=== PATIENT | female | born 2000 | race American Indian/Alaskan Native ===

== ENCOUNTER 2019-07-21 08:35 | Inpatient (IN) | payer OTHER ==
[2019-07-21] MEDS ORDERED: LACTATED RINGERS 2,000 ML ONE (08:57)
[2019-07-21] MEDS: LACTATED RINGERS 1,000 ML IV SCH (09:00)
[2019-07-21] MEDS: MAGNESIUM SULFATE 40GM/1000ML 40 GM/1,000 ML BAG IV SCH (09:50)
[2019-07-21 10:00] LABS: Hematocrit 29.4 % (30.3-42.9); Hemoglobin 9.8 gm/dl (10.1-14.3); Mean Corpuscular HGB Conc 33 % (30-34); Mean Corpuscular Volume 82 fl (79-97); Platelet Count 200 K/mm3 (140-440); Red Blood Count 3.61 M/mm3 (3.65-5.03); Red Cell Distribution Width 16.5 % (13.2-15.2)
[2019-07-21] MEDS ORDERED: MAGNESIUM SULFATE 4 GM/100 ML BAG IV ONE (10:00)
[2019-07-21] MEDS ORDERED: hydrALAZINE 20 MG/1 ML INJ IV ONE (10:00)
[2019-07-21 10:08] LABS: Bilirubin,Urine NEG (Negative); Blood,Urine SM (Negative); Color,Urine Yellow (Yellow); Hyaline Casts,Urine 1 /LPF; Mucus,Urine FEW /HPF; Urobilinogen,Urine < 2.0 mg/dL (<2.0)
[2019-07-21 10:10] LABS: Amphetamine Screen,Urine PRESUMPTIVE NEGATIVE; Benzodiazepines Screen,Urine PRESUMPTIVE NEGATIVE; Cannabinoid Screen,Urine PRESUMPTIVE NEGATIVE; Cocaine Screen,Urine PRESUMPTIVE NEGATIVE; Methadone Screen,Urine PRESUMPTIVE NEGATIVE; Opiate Screen,Urine PRESUMPTIVE NEGATIVE
[2019-07-21 10:21] LABS: Alanine Aminotransferase 14 units/L (7-56); Uric Acid 6.1 mg/dL (3.5-7.6)
[2019-07-21] MEDS ORDERED: MINERAL OIL 30 ML ORAL LIQD PO PRN (11:00)
[2019-07-21] MEDS ORDERED: ePHEDrine SULFATE 50 MG/1 ML INJ IV PRN (11:00)
[2019-07-21] MEDS ORDERED: LIDOCAINE (2%) 20 MG/1 ML VIAL 20 ML MDV INFILTRATI ONE (11:00)
[2019-07-21] MEDS ORDERED: BUTORPHANOL 2 MG/1 ML INJ IV PRN (11:00)
[2019-07-21] MEDS ORDERED: LACTATED RINGERS 1,000 ML IV SCH (11:00)
[2019-07-21] MEDS ORDERED: TERBUTALINE 1 MG/1 ML INJ IVP PRN (11:00)
[2019-07-21] MEDS ORDERED: DINOPROSTONE 10 MG VAG SUPP VG ONE (11:00)
[2019-07-21] MEDS ORDERED: fentaNYL 100 MCG/2 ML INJ IV PRN (11:00)
[2019-07-21] MEDS ORDERED: OXYTOCIN DRIP 30 UNITS/500 ML BAG IV SCH ×2 (11:00)
[2019-07-21] MEDS ORDERED: OXYTOCIN 20 UNIT/1000ML DRIP 20 UNITS/1,000 ML BAG IV SCH (11:00)
[2019-07-21] MEDS ORDERED: TERBUTALINE 1 MG/1 ML INJ SUB-Q PRN (11:00)
[2019-07-21] MEDS ORDERED: ONDANSETRON 4 MG/2 ML INJ IV PRN ×2 (11:00→20:14)
--- NOTE | 2019-07-21 13:28 | History and Physical Report ---
History of Present Illness Date of examination: 07/21/19 Chief complaint: Seizure at home History of present illness: Pt is a 18yo BF EDC 07/26/19; EGA 39 2/7 weeks presents to L&D after having a seizure at home. She has no history of seizures and received sporadic care at [facility] since 31 weeks - last visit 06/04/19. records are available and GBS is unknown. Past History Past Medical History: no pertinent history Past Surgical History: no surgical history Family/Genetic History: none Social history: no significant social history, single - Obstetrical History Expected Date of Delivery: 07/26/19 Actual Gestation: 39 Week(s) 2 Day(s) : 1 Medications and Allergies Allergies Allergy/AdvReac Type Severity Reaction Status Date / Time No Known Allergies Allergy Verified 10/09/17 09:35 Home Medications Medication Instructions Recorded Confirmed Last Taken Type HYDROcodone/APAP 5-325 [[place] 1 each PO Q12H PRN #10 tablet 11/19/17 Unknown Rx 5-325 mg TAB] Active Meds: Active Medications Butorphanol Tartrate (Stadol) 1 mg IV Q2H PRN PRN Reason: Labor Pain Ephedrine Sulfate (Ephedrine Sulfate) 10 mg IV Q2M PRN PRN Reason: Hypotension Fentanyl (Sublimaze) 100 mcg IV Q2H PRN PRN Reason: Labor Pain Lactated Ringer's (Lactated Ringers) 1,000 mls @ 125 mls/hr IV DIRECT RENE Last Admin: 07/21/19 09:00 Dose: 75 mls/hr Documented by: Magnesium Sulfate (Magnesium Sulfate 40gm/1000ml) 40 gm in 1,000 mls @ 50 mls/hr IV DIRECT RENE Last Admin: 07/21/19 09:50 Dose: 2 gm/hr, 50 mls/hr Documented by: Oxytocin/Sodium Chloride (Pitocin/Ns 20 Unit/1000ml Drip) 20 units in 1,000 mls @ 125 mls/hr IV DIRECT RENE Oxytocin/Sodium Chloride (Pitocin/Ns 30 Unit/500ml) 30 units in 500 mls @ 1 mls/hr IV TITR RENE; Protocol Oxytocin/Sodium Chloride (Pitocin/Ns 30 Unit/500ml) 30 units in 500 mls @ 4 mls/hr IV TITR RENE; Protocol Lactated Ringer's (Lactated Ringers) 1,000 mls @ 125 mls/hr IV DIRECT RENE Mineral Oil (Mineral Oil) 30 ml PO QHS PRN PRN Reason: Constipation Ondansetron HCl (Zofran) 4 mg IV Q8H PRN PRN Reason: Nausea And Vomiting Terbutaline Sulfate (Brethine) 0.25 mg SUB-Q ONCE PRN PRN Reason: Hyperstimulation/Hypertonicity Terbutaline Sulfate (Brethine) 0.25 mg IVP ONCE PRN PRN Reason: Hyperstimulation/Hypertonicity Review of Systems All systems: negative - Vital Signs Vital signs: Vital Signs Pulse BP 97 H 138/96 07/21/19 08:40 07/21/19 08:40 Temp Pulse Resp BP Pulse Ox 88 167/92 99 07/21/19 13:22 07/21/19 13:17 07/21/19 13:22 - Physical Exam Breasts: Positive: deferred Cardiovascular: Regular rate Lungs: Positive: Clear to auscultation Abdomen: Positive: normal appearance Genitourinary (Female): Positive: normal external genitalia Vagina: Positive: normal moisture Uterus: Positive: enlarged Extremities: Positive: normal - Obstetrical FHR: category 1 Uterine Contraction Monitor Mode: External Results Result Diagrams: 07/21/19 09:20 07/21/19 09:20 Abnormal lab results 07/21/19 07/21/19 Range/Units 09:20 09:20 RBC 3.61 L (3.65-5.03) M/mm3 Hgb 9.8 L (10.1-14.3) gm/dl Hct 29.4 L (30.3-42.9) % MCH 27 L (28-32) pg RDW 16.5 H (13.2-15.2) % Lactate Dehydrogenase 345 H (91-180) units/L All other labs normal. Assessment and Plan - Patient Problems (1) 39 weeks gestation of Onset Date: 07/21/19 Current Visit: Yes Status: Acute Plan to address problem: A: IUP @ 39 2/7 weeks S/P Eclamptic seizure Insufficient care P: Admit to L&D for management of Eclampsia Begin IV Magnesium sulfate, IV Hydralazine Will begin Cervidil for induction of labor (2) Eclamptic seizure Onset Date: 07/21/19 Current Visit: Yes Status: Acute (3) Insufficient care in third trimester Onset Date: 07/21/19 Current Visit: No Status: Resolved
[2019-07-21] MEDS: hydrALAZINE 20 MG/1 ML INJ IV PRN ×2 (19:33→20:26)
[2019-07-21] MEDS: OXYTOCIN 20 UNIT/1000ML DRIP 20 UNITS/1,000 ML BAG IV SCH ×2 (20:06→21:11)
--- NOTE | 2019-07-21 20:12 | Procedure Note ---
OB Delivery Note - Delivery Date of Delivery: 07/21/19 Surgeon: BENJAMIN BUSH Estimated blood loss: 100cc - Vaginal Delivery presentation: vertex Delivery position: OA Intrapartum events: eclampsia Delivery induction: cervidil Delivery augmentation: rupture of membranes Delivery monitor: external FHT, external uterine Route of delivery: Delivery placenta: spontaneous Delivery cord: 3 umbilical vessels Episiotomy: none Delivery laceration: none Anesthesia: intravenous Delivery comments: delivered OA and placed on Mom's chest for [id number] bonding and delayed cord clamping - Infant A at 1 minute: 8 at 5 minutes: 9 Gender: Male (2827gms)
[2019-07-21] MEDS ORDERED: LANOLIN/ZINC/DIMETHICONE (LANSINOH) 7 GM TP PRN (20:14)
[2019-07-21] MEDS ORDERED: ACETAMINOPHEN 325 MG TAB PO PRN (20:14)
[2019-07-21] MEDS ORDERED: WITCH HAZEL/ GLYCERIN PAD TP PRN (20:14)
[2019-07-21] MEDS ORDERED: PROMETHAZINE 25 MG TAB PO PRN (20:14)
[2019-07-21] MEDS ORDERED: MAGNESIUM HYDROXIDE (MOM) ORAL LIQD UDC PO PRN (20:14)
[2019-07-21] MEDS ORDERED: diphenhydrAMINE 25 MG CAP PO PRN (20:14)
[2019-07-21] MEDS ORDERED: HYDROcodone/ACETAMINOPHEN 5-325 MG TAB PO PRN (20:14)
[2019-07-21] MEDS ORDERED: PROMETHAZINE 25 MG RECT SUPP PR PRN (20:14)
[2019-07-22] MEDS: DOCUSATE SODIUM 100 MG CAP PO SCH ×3 (01:26→23:06)
[2019-07-22] MEDS: FERROUS SULFATE 325 MG TAB PO SCH ×3 (01:26→23:06)
[2019-07-22] MEDS: hydrALAZINE 20 MG/1 ML INJ IV PRN ×2 (02:21→04:40)
[2019-07-22] MEDS: MAGNESIUM SULFATE 40GM/1000ML 40 GM/1,000 ML BAG IV SCH (04:31)
[2019-07-22] MEDS: LACTATED RINGERS 1,000 ML IV SCH (04:31)
[2019-07-22] MEDS: IBUPROFEN 600 MG TAB PO SCH ×4 (04:39→23:07)
--- NOTE | 2019-07-22 08:32 | Progress Note ---
Assessment and Plan - Patient Problems (1) 39 weeks gestation of Onset Date: 07/21/19 Current Visit: Yes Status: Resolved (2) Eclamptic seizure Onset Date: 07/21/19 Current Visit: Yes Status: Resolved (3) Insufficient care in third trimester Onset Date: 07/21/19 Current Visit: No Status: Resolved (4) (normal spontaneous vaginal delivery) Onset Date: 07/22/19 Current Visit: No Status: Resolved Plan to address problem: A: S/P - PPD #1 Doing well S/P Eclamptic seizure - stable on IV Magnesium sulfate P: Continue IV Magnesium sulfate x 24hrs Anticipate discharge tomorrow. Subjective - Subjective Date of service: 07/22/19 Principal diagnosis: s/p - PPD #1 Interval history: Pt is feeling well without complaints. Bleeding improved. She denies headaches, blurred vision or further seizure activity. Patient reports: appetite normal, voiding normally, pain well controlled, flatus, no dizzy ambulation, no nauseated [place]: doing well, in NICU Objective - Vital Signs Latest vital signs: Vital Signs Temp Pulse Resp BP Pulse Ox 07/22/19 08:28 98 H 96 07/22/19 08:23 94 H 96 07/22/19 08:18 97 H 96 07/22/19 08:13 93 H 96 07/22/19 08:08 94 H 133/85 97 07/22/19 08:03 99 H 96 07/22/19 07:58 117 H 96 07/22/19 07:57 113 H 94 07/22/19 07:53 98 H 96 07/22/19 07:48 100 H 96 07/22/19 07:43 96 H 96 07/22/19 07:38 118 H 132/79 97 07/22/19 07:33 100 H 97 07/22/19 07:28 100 H 97 07/22/19 07:23 98 H 97 07/22/19 07:18 98 H 97 07/22/19 07:15 98.4 F 12 07/22/19 07:13 97 H 97 07/22/19 07:08 123 H 140/90 98 07/22/19 07:03 113 H 96 07/22/19 06:58 101 H 96 07/22/19 06:53 107 H 96 07/22/19 06:48 100 H 97 07/22/19 06:43 105 H 96 07/22/19 06:38 103 H 144/85 96 07/22/19 06:33 105 H 96 07/22/19 06:28 104 H 96 07/22/19 06:23 99 H 96 07/22/19 06:18 112 H 96 07/22/19 06:17 111 H 94 07/22/19 06:13 112 H 95 07/22/19 06:11 118 H 94 07/22/19 06:08 111 H 142/94 94 07/22/19 06:06 115 H 93 07/22/19 06:03 106 H 96 07/22/19 05:58 125 H 96 07/22/19 05:53 109 H 95 07/22/19 05:48 108 H 96 07/22/19 05:43 109 H 94 07/22/19 05:38 115 H 139/83 94 07/22/19 05:37 115 H 94 07/22/19 05:33 117 H 94 07/22/19 05:28 117 H 94 07/22/19 05:23 118 H 94 07/22/19 05:18 119 H 94 07/22/19 05:13 117 H 94 07/22/19 05:08 114 H 145/88 94 07/22/19 05:04 112 H 94 07/22/19 05:03 112 H 94 07/22/19 04:58 111 H 95 07/22/19 04:57 109 H 94 07/22/19 04:53 110 H 95 07/22/19 04:48 105 H 95 07/22/19 04:43 106 H 96 07/22/19 04:40 108 H 94 07/22/19 04:38 111 H 172/104 96 07/22/19 04:35 108 H 94 07/22/19 04:33 124 H 95 07/22/19 04:29 105 H 94 07/22/19 04:28 109 H 95 07/22/19 04:23 109 H 95 07/22/19 04:18 105 H 95 07/22/19 04:13 103 H 96 07/22/19 04:08 107 H 156/99 94 07/22/19 04:03 106 H 95 07/22/19 04:00 98.8 F 07/22/19 03:58 109 H 95 07/22/19 03:53 106 H 96 07/22/19 03:48 107 H 96 07/22/19 03:43 108 H 97 07/22/19 03:38 109 H 164/101 95 07/22/19 03:33 105 H 95 07/22/19 03:30 111 H 94 07/22/19 03:28 109 H 95 07/22/19 03:23 106 H 96 07/22/19 03:18 109 H 96 07/22/19 03:13 110 H 95 07/22/19 03:08 116 H 169/97 96 07/22/19 03:03 116 H 95 07/22/19 03:01 136 H 94 07/22/19 02:58 109 H 93 07/22/19 02:53 107 H 94 07/22/19 02:48 109 H 93 07/22/19 02:47 109 H 94 07/22/19 02:43 112 H 94 07/22/19 02:38 113 H 147/86 93 07/22/19 02:33 109 H 94 07/22/19 02:28 104 H 95 07/22/19 02:23 99 H 94 07/22/19 02:22 113 H 93 07/22/19 02:21 101 H 174/94 07/22/19 02:18 114 H 94 07/22/19 02:14 97 H 94 07/22/19 02:13 108 H 92 07/22/19 02:08 121 H 171/94 93 07/22/19 02:03 101 H 93 07/22/19 01:58 99 H 93 07/22/19 01:54 95 H 94 07/22/19 01:53 96 H 95 07/22/19 01:48 99 H 94 07/22/19 01:46 99 H 94 07/22/19 01:43 100 H 93 07/22/19 01:39 108 H 93 07/22/19 01:38 102 H 164/94 95 07/22/19 01:34 111 H 94 07/22/19 01:33 112 H 95 07/22/19 01:28 111 H 96 07/22/19 01:23 122 H 95 07/22/19 01:18 108 H 97 07/22/19 01:16 103 H 167/94 07/22/19 01:13 104 H 95 07/22/19 01:08 123 H 181/106 96 07/22/19 01:03 107 H 96 07/22/19 00:58 107 H 93 07/22/19 00:53 108 H 94 07/22/19 00:48 105 H 94 07/22/19 00:47 106 H 94 07/22/19 00:43 106 H 94 07/22/19 00:41 107 H 94 07/22/19 00:38 107 H 146/90 95 07/22/19 00:35 111 H 94 07/22/19 00:33 104 H 95 07/22/19 00:28 128 H 95 07/22/19 00:23 109 H 96 07/22/19 00:19 107 H 97 07/22/19 00:13 104 H 96 07/22/19 00:08 109 H 135/89 95 07/22/19 00:07 115 H 94 07/22/19 00:04 111 H 95 07/22/19 00:00 98.1 F 07/21/19 23:58 108 H 95 07/21/19 23:53 110 H 96 07/21/19 23:48 106 H 95 07/21/19 23:43 109 H 96 07/21/19 23:39 109 H 96 07/21/19 23:38 109 H 140/88 07/21/19 23:33 107 H 96 07/21/19 23:28 106 H 97 07/21/19 23:24 109 H 96 07/21/19 23:19 106 H 96 07/21/19 23:14 105 H 96 07/21/19 23:09 110 H 97 07/21/19 23:08 107 H 172/89 07/21/19 23:03 124 H 97 07/21/19 23:01 110 H 186/88 91 07/21/19 22:58 120 H 98 07/21/19 22:23 147 H 98 07/21/19 22:17 128 H 97 07/21/19 22:13 118 H 98 07/21/19 22:08 115 H 142/92 98 07/21/19 22:03 137 H 98 07/21/19 21:58 125 H 96 07/21/19 21:53 131 H 97 02/25/20 21:48 132 H 98 07/21/20 21:43 121 H 97 07/21/20 21:38 114 H 138/81 97 07/21/20 21:33 116 H 97 07/21/20 21:28 120 H 98 02/20 21:23 115 H 97 02/20 21:18 115 H 98 02/20 21:13 118 H 98 07/21/20 21:08 118 H 163/100 97 20 21:03 122 H 96 20 20:58 120 H 98 07/21/20 20:53 127 H 96 20 20:48 125 H 98 20 20:43 122 H 97 20 20:38 114 H 97 20 20:36 115 H 177/104 20 20:33 123 H 97 20 20:28 110 H 98 07/21/20 20:26 112 H 185/108 20 20:23 111 H 97 20 20:22 110 H 185/108 20 20:21 109 H 191/107 20 20:18 115 H 96 07/21/20 20:13 109 H 98 07/21/20 20:08 115 H 97 20 20:03 115 H 98 20 19:58 148 H 96 07/21/20 19:53 129 H 177/92 96 20 19:49 129 H 94 07/21/20 19:48 128 H 97 20 19:45 114 H 168/105 20 19:43 122 H 94 07/21/20 19:37 128 H 98 07/21/20 19:35 127 H 94 02/20 19:34 116 H 177/104 02/20 19:33 122 H 178/107 02/20 19:32 114 H 97 02/20 19:30 99.2 F 20 07/21/20 19:29 118 H 90 07/21/20 19:27 128 H 98 02/20 19:23 111 H 178/107 92 02/20 19:22 120 H 98 07/21/20 19:18 111 H 91 02/20 19:17 117 H 97 02/25/20 19:12 121 H 97 07/21/19 19:10 116 H 90 07/21/19 19:07 120 H 93 07/21/19 19:02 121 H 94 07/21/19 19:00 116 H 92 07/21/19 18:57 132 H 97 07/21/19 18:53 125 H 162/93 07/21/19 18:51 120 H 97 07/21/19 18:47 123 H 97 07/21/19 18:42 137 H 97 07/21/19 18:37 131 H 98 07/21/19 18:32 125 H 95 07/21/19 18:29 129 H 94 07/21/19 18:27 134 H 96 07/21/19 18:22 120 H 145/95 96 07/21/19 18:17 118 H 99 07/21/19 18:13 117 H 94 07/21/19 18:12 128 H 96 07/21/19 18:07 122 H 97 07/21/19 18:02 124 H 97 07/21/19 17:57 120 H 95 07/21/19 17:56 124 H 94 07/21/19 17:53 123 H 160/108 07/21/19 17:51 122 H 97 07/21/19 17:47 133 H 97 07/21/19 17:45 121 H 94 07/21/19 17:42 124 H 97 07/21/19 17:37 110 H 95 07/21/19 17:32 107 H 96 07/21/19 17:27 107 H 95 07/21/19 17:23 110 H 172/109 07/21/19 17:22 111 H 95 07/21/19 17:17 107 H 95 07/21/19 17:13 109 H 94 07/21/19 17:12 107 H 97 07/21/19 17:07 123 H 95 07/21/19 17:02 109 H 97 07/21/19 16:57 133 H 97 07/21/19 16:54 131 H 154/102 07/21/19 16:52 131 H 98 07/21/19 16:47 111 H 96 07/21/19 16:42 113 H 95 07/21/19 16:37 110 H 95 07/21/19 16:32 110 H 96 07/21/19 16:27 115 H 96 07/21/19 16:24 115 H 160/102 07/21/19 16:22 129 H 97 07/21/19 16:17 130 H 98 07/21/19 16:12 112 H 94 07/21/19 16:07 114 H 96 07/21/19 16:02 111 H 96 07/21/19 15:57 116 H 97 07/21/19 15:53 121 H 163/97 07/21/19 15:52 110 H 96 07/21/19 15:49 110 H 154/95 07/21/19 15:47 109 H 96 07/21/19 15:42 121 H 97 07/21/19 15:37 111 H 98 07/21/19 15:32 109 H 97 07/21/19 15:27 115 H 100 07/21/19 15:22 114 H 168/97 97 07/21/19 15:19 114 H 162/102 07/21/19 15:17 119 H 96 07/21/19 15:12 120 H 97 07/21/19 15:07 133 H 94 07/21/19 15:02 117 H 98 07/21/19 14:57 132 H 100 07/21/19 14:53 114 H 156/101 07/21/19 14:52 98.1 F 127 H 98 07/21/19 14:47 110 H 98 07/21/19 14:42 113 H 99 07/21/19 14:37 104 H 97 07/21/19 14:32 102 H 98 07/21/19 14:27 105 H 97 07/21/19 14:22 102 H 142/99 97 07/21/19 14:17 130 H 99 07/21/19 14:12 91 H 98 07/21/19 14:07 85 98 07/21/19 14:02 81 97 07/21/19 13:57 86 97 07/21/19 13:53 82 152/96 07/21/19 13:52 85 99 07/21/19 13:47 84 98 07/21/19 13:42 94 H 98 07/21/19 13:37 100 H 98 07/21/19 13:32 88 98 07/21/19 13:27 102 H 98 07/21/19 13:22 88 99 07/21/19 13:17 86 167/92 97 07/21/19 13:12 86 97 07/21/19 13:07 89 98 07/21/19 13:02 82 170/101 99 07/21/19 12:57 100 H 98 07/21/19 12:52 94 H 97 07/21/19 12:47 101 H 96 07/21/19 12:46 101 H 182/116 07/21/19 12:42 97 H 99 07/21/19 12:37 103 H 96 07/21/19 12:32 88 98 07/21/19 12:31 88 154/92 07/21/19 12:27 104 H 96 07/21/19 12:22 105 H 96 07/21/19 12:17 98 H 98 07/21/19 12:15 85 132/80 07/21/19 12:12 84 96 07/21/19 12:07 85 97 07/21/19 12:02 84 97 07/21/19 12:01 88 142/85 07/21/19 11:57 83 97 07/21/19 11:52 85 97 07/21/19 11:47 79 97 07/21/19 11:45 77 142/86 07/21/19 11:42 81 97 07/21/19 11:37 83 97 07/21/19 11:32 83 97 07/21/19 11:31 80 137/77 07/21/19 11:27 82 98 07/21/19 11:22 83 97 07/21/19 11:17 81 95 07/21/19 11:16 84 154/105 07/21/19 11:12 78 95 07/21/19 11:07 99 H 96 07/21/19 11:02 85 97 07/21/19 11:01 78 169/107 07/21/19 10:57 88 97 07/21/19 10:52 86 97 07/21/19 10:47 94 H 97 07/21/19 10:45 88 157/95 07/21/19 10:42 91 H 98 07/21/19 10:37 100 H 98 07/21/19 10:32 98 H 98 07/21/19 10:30 93 H 151/90 07/21/19 10:27 98 H 99 07/21/19 10:22 88 97 07/21/19 10:17 83 97 07/21/19 10:15 85 152/86 07/21/19 10:12 80 97 07/21/19 10:07 89 98 07/21/19 10:02 81 97 07/21/19 10:01 80 152/83 07/21/19 09:57 82 98 07/21/19 09:52 94 H 95 07/21/19 09:47 95 H 98 07/21/19 09:46 105 H 134/82 07/21/19 09:42 95 H 98 07/21/19 09:37 105 H 98 07/21/19 09:32 100 H 97 07/21/19 09:30 91 H 155/91 07/21/19 09:27 100 H 97 07/21/19 09:22 91 H 97 07/21/19 09:17 92 H 98 07/21/19 09:15 87 153/86 07/21/19 09:12 99 H 97 07/21/19 09:07 122 H 95 07/21/19 09:02 90 07/21/19 08:59 95 H 165/90 07/21/19 08:55 120 H 182/110 07/21/19 08:52 113 H 97 07/21/19 08:50 109 H 183/114 07/21/19 08:47 95 H 97 07/21/19 08:42 102 H 97 07/21/19 08:40 97 H 138/96 Intake and Output 07/21/19 07/22/19 07/22/19 22:59 06:59 14:59 Intake Total 1999 934.167 Output Total 2010 1702 83 [facility] -11 -[phone] -83 Intake: IV 1999 934.167 Lactated Ringers 1,000 ml 1000 @ 125 mls/hr IV DIRECT RENE Rx#:[id number] MAGNESIUM SULFATE 40GM/ 934.167 1000ML 40 gm In 1,000 ml @ 2 GM/HR 50 mls/hr IV DIRECT RENE Rx#:[id number] PITOCin/NS 20 UNIT/1000ML 1000 DRIP 20 units In 1,000 ml @ 250 mls/hr IV DIRECT RENE Rx#:[id number] Output: Urine 2010 1702 83 Indwelling Catheter 2010 1702 83 Other: Total, Output Amount 237 83 83 Estimated Blood Loss 100 - Exam Breasts: Present: deferred Uterus: Present: normal, firm, fundal height below umbilicus Extremities: Present: normal - Labs Labs: Abnormal lab results 07/21/19 07/21/19 07/21/19 Range/Units 09:20 09:20 17:40 RBC 3.61 L (3.65-5.03) M/mm3 Hgb 9.8 L (10.1-14.3) gm/dl Hct 29.4 L (30.3-42.9) % MCH 27 L (28-32) pg RDW 16.5 H (13.2-15.2) % Magnesium 4.80 H (1.7-2.3) mg/dL Lactate Dehydrogenase 345 H (91-180) units/L 07/22/19 Range/Units 00:25 RBC (3.65-5.03) M/mm3 Hgb (10.1-14.3) gm/dl Hct (30.3-42.9) % MCH (28-32) pg RDW (13.2-15.2) % Magnesium 5.60 H (1.7-2.3) mg/dL Lactate Dehydrogenase (91-180) units/L Laboratory Tests 07/21/19 07/21/19 07/21/19 09:20 09:20 09:20 WBC 9.9 RBC 3.61 L Hgb 9.8 L Hct 29.4 L MCV 82 MCH 27 L MCHC 33 RDW 16.5 H Plt Count 200 Creatinine 0.7 Estimated GFR > 60 Uric Acid 6.1 Magnesium AST 34 ALT 14 Lactate Dehydrogenase 345 H Urine Color Yellow Urine Turbidity Clear Urine pH 6.0 Ur Specific [place] 1.016 Urine Protein 100 mg/dl Urine Glucose (UA) Neg Urine Ketones Neg Urine Blood Sm Urine Nitrite Neg Urine Bilirubin Neg Urine Urobilinogen < 2.0 Ur Leukocyte Esterase Neg Urine WBC (Auto) 2.0 Urine RBC (Auto) 2.0 U Epithel Cells (Auto) < 1.0 Hyaline Casts 1 Urine Mucus Few Urine Opiates Screen Urine Methadone Screen Ur Barbiturates Screen Ur Phencyclidine Scrn Ur Amphetamines Screen U Benzodiazepines Scrn Urine Cocaine Screen U Marijuana (THC) Screen Drugs of Abuse Note Syphilis IgG Antibody Hep Bs Antigen HIV 1&2 Antibody Rapid HIV P24 Antigen Rubella IgG Antibody Blood Type Antibody Screen 07/21/19 07/21/19 07/21/19 09:20 09:20 17:40 WBC RBC Hgb Hct MCV MCH MCHC RDW Plt Count Creatinine Estimated GFR Uric Acid Magnesium 4.80 H AST ALT Lactate Dehydrogenase Urine Color Urine Turbidity Urine pH Ur Specific [place] Urine Protein Urine Glucose (UA) Urine Ketones Urine Blood Urine Nitrite Urine Bilirubin Urine Urobilinogen Ur Leukocyte Esterase Urine WBC (Auto) Urine RBC (Auto) U Epithel Cells (Auto) Hyaline Casts Urine Mucus Urine Opiates Screen Presumptive negative Urine Methadone Screen Presumptive negative Ur Barbiturates Screen Presumptive negative Ur Phencyclidine Scrn Presumptive negative Ur Amphetamines Screen Presumptive negative U Benzodiazepines Scrn Presumptive negative Urine Cocaine Screen Presumptive negative U Marijuana (THC) Screen Presumptive negative Drugs of Abuse Note Disclamer Syphilis IgG Antibody Hep Bs Antigen HIV 1&2 Antibody Rapid HIV P24 Antigen Rubella IgG Antibody Blood Type O POSITIVE Antibody Screen Negative 07/21/19 07/21/19 07/21/19 22:30 22:30 22:30 WBC RBC Hgb Hct MCV MCH MCHC RDW Plt Count Creatinine Estimated GFR Uric Acid Magnesium AST ALT Lactate Dehydrogenase Urine Color Urine Turbidity Urine pH Ur Specific [place] Urine Protein Urine Glucose (UA) Urine Ketones Urine Blood Urine Nitrite Urine Bilirubin Urine Urobilinogen Ur Leukocyte Esterase Urine WBC (Auto) Urine RBC (Auto) U Epithel Cells (Auto) Hyaline Casts Urine Mucus Urine Opiates Screen Urine Methadone Screen Ur Barbiturates Screen Ur Phencyclidine Scrn Ur Amphetamines Screen U Benzodiazepines Scrn Urine Cocaine Screen U Marijuana (THC) Screen Drugs of Abuse Note Syphilis IgG Antibody Non-reactive Hep Bs Antigen Non-reactive HIV 1&2 Antibody Rapid Non react HIV P24 Antigen Non react Rubella IgG Antibody Immune Blood Type Antibody Screen 07/22/19 07/22/19 07/22/19 00:25 08:36 08:36 WBC RBC Hgb 9.5 L Hct 28.7 L MCV MCH MCHC RDW Plt Count Creatinine Estimated GFR Uric Acid Magnesium 5.60 H 5.10 H AST ALT Lactate Dehydrogenase Urine Color Urine Turbidity Urine pH Ur Specific [place] Urine Protein Urine Glucose (UA) Urine Ketones Urine Blood Urine Nitrite Urine Bilirubin Urine Urobilinogen Ur Leukocyte Esterase Urine WBC (Auto) Urine RBC (Auto) U Epithel Cells (Auto) Hyaline Casts Urine Mucus Urine Opiates Screen Urine Methadone Screen Ur Barbiturates Screen Ur Phencyclidine Scrn Ur Amphetamines Screen U Benzodiazepines Scrn Urine Cocaine Screen U Marijuana (THC) Screen Drugs of Abuse Note Syphilis IgG Antibody Hep Bs Antigen HIV 1&2 Antibody Rapid HIV P24 Antigen Rubella IgG Antibody Blood Type Antibody Screen
[2019-07-22] MEDS: PRENATAL VIT27-FE FUMARATE-FOLIC ACID VIT TAB PO SCH (09:02)
[2019-07-22 09:38] LABS: Hematocrit 28.7 % (30.3-42.9); Hemoglobin 9.5 gm/dl (10.1-14.3)
[2019-07-22] MEDS ORDERED: MAGNESIUM SULFATE 40GM/1000ML 40 GM/1,000 ML BAG IV SCH (13:53)
--- NOTE | 2019-07-22 16:44 | Cat Scan Report ---
CT HEAD WITHOUT CONTRAST INDICATION : s/p seizure. TECHNIQUE: Axial, coronal and sagittal CT imaging was performed from the skull apex through the skul l base without contrast. All CT scans at this location are performed using CT dose reduction for ALA RA by means of automated exposure control. COMPARISON: None available. FINDINGS: PARENCHYMA: There is a hyperdense round noncalcified solid mass measuring 1.3 x 1.1 cm on image 16 o f series 2. Areas of low-attenuation are seen posteriorly and medially along the right parietal lobe as well as along the right occipital lobe. Similar areas of lower attenuation are noted to a lesser e xtent posteriorly and superiorly along the left parietal lobe. These findings may represent changes a ssociated with chronic microangiopathy or other white matter disease. No hemorrhage or midline shift is seen. VENTRICLES: Symmetric and normal in size. SOFT TISSUES: No significant abnormality of the included soft tissues/orbits. BONES: No acute osseous abnormality. SINUSES: No significant abnormality. ADDITIONAL FINDINGS: None. IMPRESSION: 1. 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 An MRI of the brain with and witho ut contrast would be helpful for further characterization. 2. Nonspecific white matter changes as above. Signer Name: Dex Muniz MD Signed: 07/22/2019 4:39 PM Workstation Name: [id number]
[2019-07-22] MEDS ORDERED: MEASLES, MUMPS & RUBELLA 12,500 UNIT/0.5 ML VACCINE SUB-Q ONE (20:14)
[2019-07-22] MEDS ORDERED: TETANUS,DIPH,PERTUSS(ACELL) VACCINE 0.5 ML SYRINGE IM ONE (20:14)
[2019-07-23] MEDS: IBUPROFEN 600 MG TAB PO SCH ×4 (05:40→22:36)
[2019-07-23] MEDS: FERROUS SULFATE 325 MG TAB PO SCH ×2 (09:07→22:41)
[2019-07-23] MEDS: DOCUSATE SODIUM 100 MG CAP PO SCH ×2 (09:07→22:38)
[2019-07-23] MEDS: PRENATAL VIT27-FE FUMARATE-FOLIC ACID VIT TAB PO SCH (09:08)
--- NOTE | 2019-07-23 10:22 | Progress Note ---
Assessment and Plan - Patient Problems (1) 39 weeks gestation of Onset Date: 07/21/19 Current Visit: Yes Status: Resolved (2) Eclamptic seizure Onset Date: 07/21/19 Current Visit: Yes Status: Resolved (3) Insufficient care in third trimester Onset Date: 07/21/19 Current Visit: No Status: Resolved (4) (normal spontaneous vaginal delivery) Onset Date: 07/22/19 Current Visit: No Status: Resolved Plan to address problem: A: S/P - PPD #2 Doing well S/P Eclamptic seizure - stable Abnormal Head CT Scan P: Appreciate Neurology consultation EEG and MRI pending Anticipate discharge today. Subjective - Subjective Date of service: 07/23/19 Principal diagnosis: s/p - PPD #2 Interval history: Pt is feeling well without complaints. Bleeding improved. She denies headaches, blurred vision or further seizures. Patient reports: appetite normal, voiding normally, pain well controlled, flatus, ambulating normally, no dizzy ambulation, no nauseated : doing well, nursing well, bottle feeding Objective - Vital Signs Latest vital signs: Vital Signs Temp Pulse Resp BP BP Pulse Ox 07/23/19 08:44 98.3 F 82 20 136/87 98 07/23/19 05:32 98.3 F 78 20 168/95 100 07/23/19 05:15 98.3 F 79 20 152/90 100 07/22/19 23:07 20 07/22/19 22:55 98.0 F 76 20 147/88 98 07/22/19 22:08 80 135/81 07/22/19 21:38 76 137/82 07/22/19 21:19 78 158/95 07/22/19 21:08 78 158/95 07/22/19 20:38 82 143/94 07/22/19 20:07 81 154/91 07/22/19 20:05 88 87 07/22/19 19:59 84 99 07/22/19 19:54 83 100 07/22/19 19:49 81 98 07/22/19 19:44 90 99 07/22/19 19:39 86 99 07/22/19 19:38 111 H 154/94 07/22/19 19:34 84 98 07/22/19 19:29 87 99 02/26/20 19:26 98.4 F 18 134/89 02 19:24 83 99 02 19:19 86 99 02 19:16 83 134/89 02 19:14 84 98 02 19:09 90 99 02 19:08 82 132/82 02 19:04 85 99 02 18:59 93 H 98 07/22/19 18:54 84 99 07/22/19 18:49 88 99 02 18:44 94 H 98 07/22/19 18:39 93 H 100 07/22/19 18:38 86 127/73 02 18:34 85 99 02 18:29 83 100 07/22/19 18:24 92 H 99 07/22/19 18:19 90 99 07/22/19 18:14 94 H 99 07/22/19 18:09 99 H 100 07/22/19 18:08 125 H 138/94 07/22/19 18:04 85 99 07/22/19 17:59 86 99 07/22/19 17:54 84 99 07/22/19 17:49 85 99 07/22/19 17:44 91 H 98 07/22/19 17:39 89 98 02 17:38 89 132/75 02 17:34 89 99 07/22/19 17:29 88 98 07/22/19 17:24 86 98 07/22/19 17:19 86 98 07/22/19 17:14 81 98 07/22/19 17:09 82 99 07/22/19 17:08 92 H 131/76 02 17:04 84 99 07/22/19 16:59 83 99 07/22/19 16:54 85 98 07/22/19 16:49 102 H 99 07/22/19 16:44 90 98 02 16:39 89 98 02 16:38 86 130/80 02 16:34 115 H 98 07/22/19 16:29 129 H 99 07/22/19 16:24 93 H 98 07/22/19 16:20 86 121/75 02 16:19 84 98 07/22/19 15:48 117 H 99 07/22/19 15:43 93 H 100 07/22/19 15:38 82 122/72 98 02 15:33 85 98 07/22/19 15:28 89 99 07/22/19 15:23 89 99 07/22/19 15:18 96 H 99 07/22/19 15:13 100 H 99 07/22/19 15:08 91 H 134/88 99 02 15:03 98 H 98 07/22/19 14:58 100 H 100 07/22/19 14:53 85 99 07/22/19 14:48 94 H 98 07/22/19 14:43 84 98 07/22/19 14:38 81 137/73 99 07/22/19 14:33 87 99 07/22/19 14:28 91 H 99 07/22/19 14:23 89 98 07/22/19 14:18 88 99 07/22/19 14:13 88 99 07/22/19 14:08 88 129/80 98 07/22/19 14:03 89 98 07/22/19 13:58 114 H 99 07/22/19 13:53 102 H 99 07/22/19 13:48 88 99 07/22/19 13:43 89 98 07/22/19 13:38 94 H 127/75 99 07/22/19 13:33 89 98 07/22/19 13:28 84 98 07/22/19 13:23 85 98 07/22/19 13:18 96 H 98 07/22/19 13:13 91 H 97 07/22/19 13:08 79 122/67 98 07/22/19 13:03 85 98 07/22/19 12:58 86 98 07/22/19 12:53 83 98 07/22/19 12:48 89 140/85 97 07/22/19 12:43 88 96 07/22/19 12:38 99 H 97 07/22/19 12:33 103 H 96 07/22/19 12:28 91 H 97 07/22/19 12:23 104 H 98 07/22/19 12:18 91 H 97 07/22/19 12:13 98 H 97 07/22/19 12:08 103 H 131/68 96 07/22/19 12:03 87 95 07/22/19 12:02 86 94 07/22/19 11:58 88 95 07/22/19 11:55 88 94 07/22/19 11:53 86 96 07/22/19 11:48 95 H 96 07/22/19 11:43 84 94 07/22/19 11:38 89 121/71 95 07/22/19 11:33 94 H 95 07/22/19 11:28 113 H 96 07/22/19 11:23 99 H 95 07/22/19 11:18 88 96 07/22/19 11:13 102 H 95 07/22/19 11:08 87 135/81 96 07/22/19 11:03 98 H 98 07/22/19 10:58 95 H 98 07/22/19 10:53 88 97 07/22/19 10:48 88 97 07/22/19 10:43 85 97 07/22/19 10:38 95 H 144/101 98 07/22/19 10:33 94 H 97 07/22/19 10:28 90 97 07/22/19 10:23 91 H 97 Intake and Output 07/22/19 07/23/19 07/23/19 22:59 06:59 14:59 Intake Total 240 Output Total 800 700 Balance -800 -460 Intake: Oral 240 Output: Urine 800 700 Indwelling Catheter 800 Void 700 Other: Total, Intake Amount 240 Total, Output Amount 300 700 # Voids Indwelling Catheter 1 Void 1 - Exam Abdomen: Present: normal appearance, soft Uterus: Present: normal, firm, fundal height below umbilicus Extremities: Present: normal - Labs Labs: Abnormal lab results 07/22/19 07/22/19 Range/Units 12:19 19:23 Magnesium 5.40 H 4.40 H (1.7-2.3) mg/dL
--- NOTE | 2019-07-23 11:14 | Progress Note ---
Subjective Date of service: 07/23/19 Principal diagnosis: s/p - PPD #2 Interval history: patient is seen and examined she is neuro stable likely eclampsia is cause of seizure the sister of paresh was subject to pre-eclampsia adise magnesium and check EEG and MRI Objective - Vital Sign Vital Signs - 12hr 07/23/19 07/23/19 07/23/19 05:15 05:32 08:44 Temperature 98.3 F 98.3 F 98.3 F Pulse Rate 79 78 82 Respiratory 20 20 20 Rate Blood Pressure 168/95 136/87 Blood Pressure 152/90 [Right] O2 Sat by Pulse 100 100 98 Oximetry - Laboratory Findings CBC and BMP: 07/22/19 08:36 07/21/19 09:20 Abnormal Lab Findings: Abnormal Labs 07/21/19 07/21/19 07/21/19 09:20 09:20 17:40 RBC 3.61 L Hgb 9.8 L Hct 29.4 L MCH 27 L RDW 16.5 H Magnesium 4.80 H Lactate Dehydrogenase 345 H 07/22/19 07/22/19 07/22/19 00:25 08:36 08:36 RBC Hgb 9.5 L Hct 28.7 L MCH RDW Magnesium 5.60 H 5.10 H Lactate Dehydrogenase 07/22/19 07/22/19 12:19 19:23 RBC Hgb Hct MCH RDW Magnesium 5.40 H 4.40 H Lactate Dehydrogenase
--- NOTE | 2019-07-23 11:41 | Consultation ---
HISTORY OF PRESENT ILLNESS: This is a 18-year-old black female who was seen at the request of Dr. Quan. She was seen in a room, which is 2138. She is . At this point, the baby is currently with her and appears to be in good state of health. The patient presents with a 2-3 day history of dizziness, severe right-sided headaches, confused thinking. She was apparently with her mother when she was taken to the hospital and had a generalized seizure. Subsequent to the seizure, she continues to have very mild problems with feeling as if the right side of her face is swollen. She has a very slight headache over the right temporal area. Otherwise, she is completely oriented, appropriate. Vision, she states is a little blurred, but she can read and otherwise detect shapes very well. Her is the second . The first was a vaginal delivery and she did not have problems with that. Of interest is the fact she did have hypertension with this , weight gain of approximately 30 pounds for the patient's history. She is not an epileptic. There is an interesting history in her sister being preeclamptic with 2 pregnancies requiring C-sections, but not having seizures. PHYSICAL EXAMINATION: VITAL SIGNS: On my examination, the patient's blood pressure is 115/80, pulse rate 86. NEUROLOGIC: Cranial nerves 2-12 intact. Speech clear. Affect appropriate. Neck supple. Full ocular movements are present. Face is symmetrical. Motor and sensory testing. Despite the patient's statements, her right side of her face feels full. I do not detect any facial fullness on the right side. She does not have a tongue laceration that I can detect. She moves all extremities well. No tremors or asterixis are noted. IMPRESSION: Generalized seizure occurring and eclampsia. Recommend supplementing magnesium. We will check MRI scan, EEG. At this point, the patient is neurologically quite stable and obviously if her MRI scan is negative, she may be discharged home. I would not think she requires anticonvulsants given the clinical situation, magnesium supplementation should simply suffice and this issue and that the patient has made a complete and total neurological recovery. JOB# [id number] YUMIKO/THI
--- NOTE | 2019-07-23 13:51 | Magnetic Resonance Report ---
MRI BRAIN : 07/23/2019 INDICATION / CLINICAL INFORMATION: seizure. TECHNIQUE: Multiplanar, multisequence MR images of the brain were obtained. COMPARISON: None available. FINDINGS: BRAIN / INTRACRANIAL CONTENTS: Unenhanced MR images of the brain were obtained. There is a zone of abnormally increased T2-weighted cortical and subcortical signal involving the lat eral aspect of the right occipital lobe and extending into the medial dorsal right parietal lobe. The re may be some additional increased T2-weighted signal present in the left medial parietal lobe, alth ough much less significant in extent. There is no definite evidence of restricted diffusion. Some min imal T2 shine through artifact is present in the left occipital lobe. There is no evidence of acute ischemic injury, hemorrhage, or mass. There are no abnormal extra-axial fluid collections. Incidental note is made of some prominence to the size of the pituitary gland, probably within normal limits for a patient of this age. There is any clinical concern regarding pituitary abnormality, mor e detailed imaging of the pituitary gland is available. EXTRACRANIAL: Unremarkable CRANIOCERVICAL JUNCTION: No significant abnormality. VASCULAR FLOW-VOIDS: No significant abnormality. IMPRESSION: T2-weighted signal change in the medial right temporal and parietal lobe, with a much lesser extent on the left. Differential diagnosis includes ischemic injury ,, post ictal signal change, posterior r eversible encephalopathy syndrome ((PRES) Prominent pituitary gland. Signer Name: Brayan Acevedo MD Signed: 07/23/2019 1:47 PM Workstation Name: [id number]
[2019-07-23] MEDS: hydrALAZINE 20 MG/1 ML INJ IV PRN (17:34)
[2019-07-23] MEDS: NIFEdipine XL 30 MG TAB PO SCH (19:04)
[2019-07-24] MEDS: IBUPROFEN 600 MG TAB PO SCH ×3 (05:24→16:36)
--- NOTE | 2019-07-24 06:34 | Progress Note ---
Subjective Date of service: 07/24/19 Principal diagnosis: s/p - PPD #2 Interval history: I have personally reviewed all images from the MRI and have reviewed the formal radiologist report.... this is normal MRI therefore seizure due to eclampsia treat with magnesium...no need for anti epileptic meds and advise she may safely be discharged from neuro standpoint Objective - Vital Sign Vital Signs - 12hr 07/23/19 07/24/19 22:41 00:15 Temperature 99.1 F Pulse Rate 98 H 90 Respiratory 18 Rate Blood Pressure 155/91 134/73 O2 Sat by Pulse 98 Oximetry - Laboratory Findings CBC and BMP: 07/22/19 08:36 07/21/19 09:20 Abnormal Lab Findings: Abnormal Labs 07/21/19 07/21/19 07/21/19 09:20 09:20 17:40 RBC 3.61 L Hgb 9.8 L Hct 29.4 L MCH 27 L RDW 16.5 H Magnesium 4.80 H Lactate Dehydrogenase 345 H 07/22/19 07/22/19 07/22/19 00:25 08:36 08:36 RBC Hgb 9.5 L Hct 28.7 L MCH RDW Magnesium 5.60 H 5.10 H Lactate Dehydrogenase 07/22/19 07/22/19 12:19 19:23 RBC Hgb Hct MCH RDW Magnesium 5.40 H 4.40 H Lactate Dehydrogenase
[2019-07-24] MEDS: PRENATAL VIT27-FE FUMARATE-FOLIC ACID VIT TAB PO SCH (09:50)
[2019-07-24] MEDS: NIFEdipine XL 30 MG TAB PO SCH (09:50)
[2019-07-24] MEDS: DOCUSATE SODIUM 100 MG CAP PO SCH (09:50)
[2019-07-24] MEDS: FERROUS SULFATE 325 MG TAB PO SCH (09:50)
--- NOTE | 2019-07-24 10:53 | Progress Note ---
Assessment and Plan - Patient Problems (1) 39 weeks gestation of Onset Date: 07/21/19 Current Visit: Yes Status: Resolved (2) Eclamptic seizure Onset Date: 07/21/19 Current Visit: Yes Status: Resolved (3) Insufficient care in third trimester Onset Date: 07/21/19 Current Visit: No Status: Resolved (4) (normal spontaneous vaginal delivery) Onset Date: 07/22/19 Current Visit: No Status: Resolved Plan to address problem: A: S/P - PPD #3 Doing well S/P Eclamptic seizure - stable Abnormal Head CT Scan, Normal MRI P: Appreciate Neurology consultation - May go home per Neurology Discharge today Follow up in office in 1 week for BP check. Subjective - Subjective Date of service: 07/24/19 Principal diagnosis: s/p - PPD #3 Interval history: Pt is feeling well without complaints. Bleeding improved. She denies headaches, blurred vision or further seizures. Discussed results of CT Scan, MRI and EEG - all WNL per Neurology. Patient reports: appetite normal, voiding normally, pain well controlled, flatus, ambulating normally, no dizzy ambulation, no nauseated : doing well, bottle feeding Objective - Vital Signs Latest vital signs: Vital Signs Temp Pulse Resp BP BP BP Pulse Ox 07/24/19 10:44 90 18 139/85 97 07/24/19 07:25 98.6 F 84 18 159/94 97 07/24/19 00:15 99.1 F 90 18 134/73 98 07/23/19 22:41 98 H 155/91 07/23/19 17:55 137/80 07/23/19 17:50 145/83 07/23/19 17:45 151/96 07/23/19 17:40 162/90 07/23/19 17:15 172/96 07/23/19 15:42 98.7 F 77 20 160/99 99 07/23/19 13:53 98.6 F 93 H 19 168/96 98 Intake and Output 07/23/19 07/24/19 07/24/19 22:59 06:59 14:59 Intake Total 720 120 Balance 720 120 Intake: Oral 720 Intake, Free Water 120 Other: Total, Intake Amount 240 # Voids Void 1 1 - Exam Breasts: Present: deferred Abdomen: Present: normal appearance, soft Uterus: Present: normal, firm, fundal height below umbilicus Extremities: Present: normal
--- NOTE | 2019-07-24 10:54 | Discharge Summary ---
Providers - Providers Date of Admission: 07/21/19 11:01 Date of discharge: 07/24/19 Attending physician: BENJAMIN BUSH 07/22/19 13:53 Consult to Physician [CONS] Urgent Comment: Consulting Provider: LITZY NINO Physician Instructions: Reason For Exam: s/p seizure Primary care physician: BENJAMIN BUSH Hospitalization Reason for admission: induction of labor, other (s/p Eclamptic seizure) Delivery: Episiotomy: none Laceration: none Other procedures: none complications: none Discharge diagnosis: IUP at term delivered [place] baby: male Hospital course: Pt is a 18yo BF EDC 07/26/19; EGA 39 2/ weeks who presented to L&D after having a seizure at home. She has no history of seizures and received sporadic care at [facility] since 31 weeks. She was admitted stared on IV Magnesium sulfate and labor induced with cervidil, and she subsequently delivered by . course was uneventful, and she had no further seizure activity. Neurology was consulted where her Head CT Scan, MRI and EEG was WNL per the Neurologist, and she was cleared for discharge without anti-epileptics. She will therefore be discharged to home today in stable condition on Labetolol 200mg BID and Procardia XL 30mg QD, and will follow up in the office in 1 week for BP check. Condition at discharge: Good Disposition: DC-01 TO HOME OR SELFCARE - Discharge Diagnoses (1) 39 weeks gestation of Status: Resolved (2) Eclamptic seizure Status: Resolved (3) Insufficient care in third trimester Status: Resolved (4) (normal spontaneous vaginal delivery) Status: Resolved Plan - Discharge Medications Prescriptions: Ferrous Sulfate [Feosol 325 MG tab] 325 mg PO BID #60 tablet labetaloL [Labetalol 200mg TAB] 200 mg PO BID #60 tablet Ibuprofen [Motrin 600 MG tab] 600 mg PO Q6H #30 tablet Vit-Fe Fumar-FA [ Vitamin] 1 tab PO QDAY #30 tablet Vit-Fe Fumar-FA [ Vitamin] 1 each PO QDAY #30 tablet NIFEdipine XL [Procardia Xl] 30 mg PO QDAY #30 tablet - Provider Discharge Summary Activity: routine, no sex for 6 weeks, no heavy lifting 4 weeks, no strenuous exercise Diet: routine Instructions: routine Additional instructions: [] Smoking cessation referral if applicable(refer to patient education folder for contact #) [] Refer to [facility] Booklet Call your doctor immediately for: * Fever > 100.5 * Heavy vaginal bleeding ( >1 pad per hour) * Severe persistent headache * Shortness of breath * Reddened, hot, painful area to leg or breast * Drainage or odor from incision. * Keep incision clean and dry at all times and follow doctor's instructions regarding bathing/showering Follow up in office in 1 week for BP check - Follow up plan Follow up: BENJAMIN BUSH MD [Primary Care Provider] - 7 Days LUKE PEREIRA CNM [Advanced Practice Nurse] - 7 Days TAWANA HERBERT [Advanced Practice Nurse] - 7 Days LITZY NINO MD [Staff Physician] - 6 Weeks
[2019-07-24 16:53] VITALS: BP 134/82
== END 2019-07-24 18:41 | disposition home or self-care (01) | DRG 774 ==
LOC: TRG 08:35 → LD 08:39 → TRG 11:01 → LD 11:01 → OB 07-22 22:29
PROVIDERS: ADMIT Obstetrics & Gynecology; ATTEND Obstetrics & Gynecology
PROC: 10E0XZZ Delivery of Products of Conception, External Approach (ICD-10-PCS; principal; 2019-07-21)
PROC: 3E0P7VZ Introduction of Hormone into Female Reproductive, Via Natural or Artificial Opening (ICD-10-PCS; 2019-07-21)
PROC: 3E0234Z Introduction of Serum, Toxoid and Vaccine into Muscle, Percutaneous Approach (ICD-10-PCS; 2019-07-22)
PROC: 3E0134Z Introduction of Serum, Toxoid and Vaccine into Subcutaneous Tissue, Percutaneous Approach (ICD-10-PCS; 2019-07-22)
DX: O15.1 Eclampsia complicating labor (principal); O99.354 Diseases of the nervous system complicating childbirth; Z3A.39 39 weeks gestation of pregnancy; G40.89 Other seizures; Z37.0 Single live birth; Z23 Encounter for immunization
CPT/HCPCS: 36415; 59200; 70450; 70551; 80307; 81001; 82565; 83615; 83735; 84450; 84460; 84550; 85014; 85018; 85027; 86592; 86695; 86706; 86762; 86850; 86900; 86901; 87806; 90707; 95819; G0378; J0360; J2405; J2590; J3475; J7120